=== PATIENT | male | born 1965 | race Caucasian/White ===

== ENCOUNTER 2020-08-30 07:30 | Inpatient (IN) ==
[2020-08-30] MEDS ORDERED: ANCEF 1 GRAM IV PREMIX* 2 G/100 ML BAG IV ONE (09:53)
[2020-08-30] MEDS ORDERED: LR 1000 ML IV 1,000 ML IV ONE (09:53)
[2020-08-30 10:39] VITALS: BMI 29.0
[2020-08-30] MEDS ORDERED: FENTANYL INJ 250 mcg ONE (10:56)
[2020-08-30] MEDS ORDERED: ZEMURON 50 MG VIAL ONE (10:57)
[2020-08-30] MEDS ORDERED: LTA KIT LIDOCAINE 4% ONE (11:04)
[2020-08-30] MEDS ORDERED: ZOFRAN INJ 4 MG VIAL ONE (11:04)
[2020-08-30] MEDS ORDERED: NEOSTIGMINE INJ ONE (11:04)
[2020-08-30] MEDS ORDERED: VERSED ONE (11:04)
[2020-08-30] MEDS ORDERED: DIPRIVAN VIAL ONE (11:04)
[2020-08-30] MEDS ORDERED: ULTANE GAS IN ONE ×2 (11:04→11:20)
[2020-08-30] MEDS ORDERED: QUELICIN (OR ANECTINE) ONE (11:04)
[2020-08-30] MEDS ORDERED: ROBINUL ONE (11:04)
[2020-08-30] MEDS ORDERED: XYLOCAINE 2 % (PLAIN) ONE (11:04)
[2020-08-30] MEDS ORDERED: SUPRANE ONE (11:20)
[2020-08-30] MEDS ORDERED: POLYMYXIN B SULFATE ONE (11:24)
[2020-08-30] MEDS ORDERED: BENADRYL INJ 50 MG VIAL IVP PRN (12:33)
[2020-08-30] MEDS ORDERED: ZOFRAN INJ 4 MG VIAL IVP PRN ×2 (12:33→18:04)
[2020-08-30] MEDS ORDERED: PHENERGAN INJ 25 MG IM PRN (12:33)
[2020-08-30] MEDS ORDERED: REGLAN INJ 10 MG VIAL IVP PRN (12:33)
[2020-08-30] MEDS: DILAUDID INJ IVP PRN ×6 (12:38→23:25)
[2020-08-30] MEDS ORDERED: DILAUDID INJ IVP PRN (16:52)
[2020-08-30] MEDS ORDERED: DILAUDID INJ ONE (16:56)
[2020-08-30] MEDS: ANCEF VIAL 1 GRAM IVP SCH (22:30)
[2020-08-31] MEDS: ANCEF VIAL 1 GRAM IVP SCH (06:05)
[2020-08-31 08:51] LABS: BASOPHILS % (AUTO) 0.5 % (0.2-1.0); EOSINOPHILS # (AUTO) 0.2 x10^3/uL (0.0-0.2); EOSINOPHILS % (AUTO) 2.5 % (0.9-2.9); HEMATOCRIT 39.7 % (42.0-54.0); HEMOGLOBIN 13.1 g/dL (13.5-18.0); LYMPHOCYTES # (AUTO) 2.4 X10^3/uL (1.3-2.9); MEAN CORPUSCULAR HEMOGLOBIN 28.5 pg (27.0-34.0); MEAN CORPUSCULAR HGB CONC 33.1 g/dL (33.0-35.0); MEAN CORPUSCULAR VOLUME 86.1 fL (80.0-100.0); MEAN PLATELET VOLUME 8.9 fL (7.4-11.0); MONOCYTES # (AUTO) 0.7 x10^3/uL (0.3-0.8); MONOCYTES % (AUTO) 7.4 % (0.0-13.0); NEUTROPHILS # (AUTO) 6.4 x10^3/uL (2.2-4.8); NEUTROPHILS % (AUTO) 65.6 % (42.0-75.0); PLATELET COUNT 207 X10^3/uL (150.0-450.0); RED BLOOD COUNT 4.61 X10^6/uL (4.7-6.0); RED CELL DISTRIBUTION WIDTH 14.6 % (11.6-16.5); WHITE BLOOD COUNT 9.8 X10^3/uL (3.6-10.0)
[2020-08-31 08:53] LABS: BLOOD UREA NITROGEN 8 mg/dL (7-18); CALCIUM 9.4 mg/dL (8.5-10.1); CARBON DIOXIDE 33.5 mmol/L (21-32); CHLORIDE 101 mmol/L (98-107); COR NA(FOR HYPERGLY) 141 mmol/L (136-145); CREATININE 0.97 mg/dL (0.70-1.30); SODIUM 140 mmol/L (136-145); eGFR NON BLACK RACES > 60 (>60)
[2020-08-31] MEDS: DILAUDID INJ IVP PRN (11:45)
[2020-08-31 13:15] VITALS: BP 143/88
[2020-08-31] MEDS ORDERED: HEPARIN SODIUM INJ 5000 UNITS SC SCH (14:00)
== END 2020-08-31 13:40 | disposition home or self-care (01) | DRG 585 ==
LOC: MED/SURG 08:55
PROVIDERS: ADMIT Surgery; ATTEND Surgery
PROC: [UNRECOGNIZED PROCEDURE] (2020-08-30 07:40)
DX: N62 Hypertrophy of breast; N63.20 Unspecified lump in the left breast, unspecified quadrant; N63.10 Unspecified lump in the right breast, unspecified quadrant